=== PATIENT | male | born 1955 | race Caucasian/White ===

== ENCOUNTER → 2016-07-13 | Outpatient (CLI) | payer BC ==
[~2016-07-13] MED LIST: AMLODIPINE BESYL5 MG PO; ASPIR-LOW81 MG PO; CARDIZEM CD240 MG PO; Cardizem CD,LA,Cartia,Tiazac,Dilacor,Taztia PO; ELIQUIS5 MG PO; FUROSEMIDE20 MG PO; HYDROCHLOROTHIA25 MG PO; LEVOTHYROXINE100 MCG PO; MELOXICAM7.5 MG PO; MOTRIN IB200 MG PO; NORVASC10 MG PO; PERCOCET 5/31 TABLET PO; PRINIVIL20 MG PO; SOTALOL80 MG PO; SYNTHROID175 MCG PO; TRAMADOL HCL50 MG PO
== END | disposition home or self-care (01) ==
LOC: NUC 08:19
DX: Z01.810 Encounter for preprocedural cardiovascular examination (principal)
CPT/HCPCS: 78452; 78999; 93017; A9500; J2785

== ENCOUNTER 2016-09-14 10:44 | Inpatient (IN) | payer BC ==
[~2016-09-14] VITALS: Ht 185.4 cm; Wt 159.0 kg
[2016-09-14 12:56] VITALS: BP 142/82
[2016-09-14 13:08] LABS: POINT-OF-CARE METER ID UU14174212
[2016-09-14 18:45] VITALS: BP 149/77
[2016-09-15 00:14] VITALS: BP 163/82
[2016-09-15 00:28] LABS: POINT-OF-CARE METER ID UU14162508
[2016-09-15 03:14] VITALS: BP 178/76
[2016-09-15 04:24] VITALS: BP 178/79
[2016-09-15 06:01] LABS: POINT-OF-CARE METER ID UU14162508
[2016-09-15 07:13] LABS: HEMATOCRIT 41.4 % (38.0-50.0); MCH 30.7 PG (29.0-34.0); MCHC 34.1 G/DL (30.0-36.0); MCV 90.2 FL (86-99); MEAN PLAT.VOLUME 10.9 uM^3 (9.0-12.4); PLATELET COUNT 237 K/uL (156-360); RBC DIS.WIDTH-CV 11.9 % (11.8-14.6); RBC DIS.WIDTH-SD 39.3 % (39-53); RED BLOOD COUNT 4.59 M/uL (4.00-5.50)
[2016-09-15 07:17] LABS: WHITE BLOOD COUNT 9.3 K/uL (4.1-10.2)
[2016-09-15 07:23] LABS: ANION GAP 12 MEQ/L (2-14); CHLORIDE 103 MEQ/L (99-109); GFR ESTIMATE (CALCULATED) > 59 mL/min/; GLUCOSE 122 mg/dL (70-99); MAGNESIUM 1.7 mg/dl (1.3-2.7); POTASSIUM 4.4 MEQ/L (3.7-5.4); SAMPLE HEMOLYSIS CHECK 0; SAMPLE ICTERIC CHECK 0; SAMPLE LIPEMIA CHECK 0; SODIUM 140 MEQ/L (136-147); UREA NITROGEN (BUN) 16 mg/dL (9-23)
[2016-09-15 08:00] VITALS: BP 175/76
[2016-09-15] MEDS ORDERED: ELIQUIS5 MG PO (08:19)
[2016-09-15] MEDS ORDERED: HYDROCODON-ACE1 EAC7 PO (08:20)
[2016-09-15] MEDS ORDERED: ASPIR-LOW81 MG PO (08:20)
[2016-09-15 12:00] VITALS: BP 179/77
[2016-09-15 12:30] LABS: POINT-OF-CARE METER ID UU14162508
[2016-09-15 14:30] VITALS: BP 162/68
== END 2016-09-15 13:54 | disposition home or self-care (01) | DRG 621 ==
LOC: 2SOUTH 10:44 → 2EASTP 18:42
PROVIDERS: Surgery
PROC: 0DB64Z3 Excision of Stomach, Percutaneous Endoscopic Approach, Vertical (ICD-10-PCS; principal; 2016-09-14)
DX: E66.01 Morbid (severe) obesity due to excess calories (principal); Z68.42 Body mass index [BMI] 45.0-49.9, adult; I27.2 Other secondary pulmonary hypertension; G47.30 Sleep apnea, unspecified; I48.2 Chronic atrial fibrillation; I48.0 Paroxysmal atrial fibrillation; E03.9 Hypothyroidism, unspecified; M12.9 Arthropathy, unspecified; I10 Essential (primary) hypertension; E78.5 Hyperlipidemia, unspecified; Z79.82 Long term (current) use of aspirin; Z99.89 Dependence on other enabling machines and devices; Z87.891 Personal history of nicotine dependence
CPT/HCPCS: 80048; 82948; 83735; 84100; 85027; C9113; J0330; J0461; J0690; J1100; J1170; J1644; J1650; J1815; J1885; J2250; J2270; J2405; J2550; J3010; J3480; J7120; S0020

== ENCOUNTER 2017-12-11 19:04 | Inpatient (IN) | payer OTHER ==
[~2017-12-11] VITALS: Ht 185.4 cm; Wt 117.8 kg
[~2017-12-11 19:04] MED LIST changes: +HYDROCODON-ACE1 EAC7 PO
[2017-12-11 19:36] LABS: HEMATOCRIT 44.8 % (38.0-50.0); HEMOGLOBIN 15.3 G/DL (12.5-16.6); MCH 31.4 PG (29.0-34.0); MCHC 34.2 G/DL (30.0-36.0); MCV 91.8 FL (86-99); PLATELET COUNT 181 K/uL (156-360); RBC DIS.WIDTH-CV 13.8 % (11.8-14.6); RBC DIS.WIDTH-SD 46.7 % (39-53); RED BLOOD COUNT 4.88 M/uL (4.00-5.50); WHITE BLOOD COUNT 5.4 K/uL (4.1-10.2)
[2017-12-11 19:52] LABS: CHLORIDE 108 mEq/L (99-109); POTASSIUM 3.9 mEq/L (3.7-5.4); SODIUM 140 mEq/L (136-147)
[2017-12-11 19:53] LABS: GLUCOSE 98 mg/dL (70-99)
[2017-12-11 19:57] LABS: CREATININE 0.9 mg/dL (0.6-1.3); GFR ESTIMATE (CALCULATED) > 59 mL/min/ (58.99-99999)
[2017-12-11 20:03] LABS: TROP-I INTERPRETATION INDETERMINATE; TROPONIN-I 0.45 ng/mL (0.0-0.30)
[2017-12-11 20:13] LABS: ALBUMIN 3.4 g/dL (3.2-4.8); UREA NITROGEN (BUN) 17 mg/dL (9-23)
[2017-12-11 20:16] LABS: TOTAL PROTEIN 5.5 g/dL (6.4-8.3)
[2017-12-11 20:18] LABS: TOTAL BILIRUBIN 1.5 mg/dL (0.0-1.0)
[2017-12-11 20:19] LABS: ALKALINE PHOSPHATASE 76 IU/L (3-129)
[2017-12-11 20:22] LABS: ALT (GPT) 60 IU/L (3-49); AST (GOT) 40 IU/L (2-34); DIRECT BILIRUBIN 0.6 mg/dL (0.0-0.3)
[2017-12-11] MEDS ORDERED: LO-DOSE ASPIRIN81 M2 PO (23:02)
[2017-12-11] MEDS ORDERED: LEVOTHYROXINE175 MCG PO (23:03)
[2017-12-11] MEDS ORDERED: OMEPRAZOLE40 M1 PO (23:03)
[2017-12-11] MEDS ORDERED: FUROSEMIDE20 MG PO (23:03)
[2017-12-11] MEDS ORDERED: PRAVASTATIN SOD40 MG PO (23:03)
[2017-12-12] VITALS (8 sets, daily range): BP systolic 95–139; BP diastolic 50–109
[2017-12-12 00:11] LABS: MAGNESIUM 1.9 mg/dL (1.3-2.7)
[2017-12-12 02:18] LABS: TROP-I INTERPRETATION INDETERMINATE; TROPONIN-I 0.33 ng/mL (0.0-0.30)
[2017-12-12 05:23] LABS: HEMATOCRIT 42.5 % (38.0-50.0); HEMOGLOBIN 14.3 G/DL (12.5-16.6); MCH 30.9 PG (29.0-34.0); MCHC 33.6 G/DL (30.0-36.0); MCV 91.8 FL (86-99); PLATELET COUNT 163 K/uL (156-360); RBC DIS.WIDTH-SD 47.2 % (39-53); RED BLOOD COUNT 4.63 M/uL (4.00-5.50); WHITE BLOOD COUNT 5.3 K/uL (4.1-10.2)
[2017-12-12 05:46] LABS: ALBUMIN 3.1 G/DL (3.2-4.8); ALKALINE PHOSPHATASE 55 IU/L (3-129); ALT (GPT) 43 IU/L (3-49); AST (GOT) 28 IU/L (2-34); CHLORIDE 106 MEQ/L (99-109); CREATININE 0.8 MG/DL (0.6-1.3); GFR ESTIMATE (CALCULATED) > 59 mL/min/ (58.99-99999); GLUCOSE 88 mg/dL (70-99); POTASSIUM 3.4 MEQ/L (3.7-5.4); SODIUM 141 MEQ/L (136-147); TOTAL BILIRUBIN 1.3 MG/DL (0.0-1.0); TOTAL PROTEIN 5.1 G/DL (6.4-8.3); UREA NITROGEN (BUN) 14 mg/dL (9-23)
[2017-12-12 07:52] LABS: THYROTROPIN (TSH) 2.9 MIU/L (0.4-5.5)
[2017-12-12 08:22] LABS: TROP-I INTERPRETATION NEGATIVE; TROPONIN-I 0.24 ng/mL (0.0-0.30)
[2017-12-13] VITALS (7 sets, daily range): BP systolic 100–123; BP diastolic 76–97
[2017-12-13 13:45] LABS: CHLORIDE 102 MEQ/L (99-109); CREATININE 0.8 MG/DL (0.6-1.3); GFR ESTIMATE (CALCULATED) > 59 mL/min/ (58.99-99999); GLUCOSE 124 mg/dL (70-99); MAGNESIUM 1.8 mg/dl (1.3-2.7); SODIUM 140 MEQ/L (136-147); UREA NITROGEN (BUN) 11 mg/dL (9-23)
[2017-12-13 13:46] LABS: POTASSIUM 4.7 MEQ/L (3.7-5.4)
[2017-12-14 03:07] VITALS: BP 98/80
[2017-12-14 05:19] LABS: BASOPHIL (%) 0.6 % (0-1); EOSINOPHIL (%) 2.3 % (0-5); EOSINOPHIL COUNT 0.2 K/uL (0-0.3); HEMATOCRIT 42.1 % (38.0-50.0); HEMOGLOBIN 14.1 G/DL (12.5-16.6); IMMATURE GRANULOCYTE (%) 0.1 % (0.0-0.7); LYMPHOCYTE (%) 23.9 % (15-42); LYMPHOCYTE COUNT 1.7 K/uL (1.0-2.8); MCH 31.2 PG (29.0-34.0); MCHC 33.5 G/DL (30.0-36.0); MCV 93.1 FL (86-99); MONOCYTE (%) 8.3 % (3-12); MONOCYTE COUNT 0.6 K/uL (0-0.8); NEUTROPHIL (%) 64.8 % (45-76); NEUTROPHIL COUNT 4.6 K/uL (1.8-6.4); PLATELET COUNT 176 K/uL (156-360); RBC DIS.WIDTH-SD 47.4 % (39-53); RED BLOOD COUNT 4.52 M/uL (4.00-5.50); WHITE BLOOD COUNT 7.1 K/uL (4.1-10.2)
[2017-12-14 05:37] VITALS: BP 106/73
[2017-12-14 06:10] LABS: ALBUMIN 3.1 G/DL (3.2-4.8); ALKALINE PHOSPHATASE 58 IU/L (3-129); ALT (GPT) 29 IU/L (3-49); AST (GOT) 17 IU/L (2-34); CHLORIDE 104 MEQ/L (99-109); CREATININE 0.6 MG/DL (0.6-1.3); GFR ESTIMATE (CALCULATED) > 59 mL/min/ (58.99-99999); POTASSIUM 4.2 MEQ/L (3.7-5.4); SODIUM 139 MEQ/L (136-147); TOTAL PROTEIN 4.9 G/DL (6.4-8.3); UREA NITROGEN (BUN) 12 mg/dL (9-23)
[2017-12-14 06:17] LABS: GLUCOSE 85 mg/dL (70-99); TOTAL BILIRUBIN 0.8 MG/DL (0.0-1.0)
[2017-12-14 07:44] VITALS: BP 123/88
[2017-12-14 12:18] VITALS: BP 122/81
[2017-12-14 15:45] VITALS: BP 97/83
[2017-12-14 20:39] VITALS: BP 129/76
[2017-12-15] VITALS (8 sets, daily range): BP systolic 102–130; BP diastolic 68–82
[2017-12-15 05:58] LABS: BASOPHIL (%) 0.4 % (0-1); EOSINOPHIL (%) 2.5 % (0-5); EOSINOPHIL COUNT 0.2 K/uL (0-0.3); HEMATOCRIT 44.9 % (38.0-50.0); HEMOGLOBIN 14.7 G/DL (12.5-16.6); IMMATURE GRANULOCYTE (%) 0.3 % (0.0-0.7); LYMPHOCYTE (%) 20.7 % (15-42); LYMPHOCYTE COUNT 1.4 K/uL (1.0-2.8); MCH 30.4 PG (29.0-34.0); MCHC 32.7 G/DL (30.0-36.0); MONOCYTE (%) 8.4 % (3-12); MONOCYTE COUNT 0.6 K/uL (0-0.8); NEUTROPHIL (%) 67.7 % (45-76); NEUTROPHIL COUNT 4.7 K/uL (1.8-6.4); PLATELET COUNT 183 K/uL (156-360); RBC DIS.WIDTH-CV 13.9 % (11.8-14.6); RBC DIS.WIDTH-SD 47.2 % (39-53); RED BLOOD COUNT 4.83 M/uL (4.00-5.50); WHITE BLOOD COUNT 6.9 K/uL (4.1-10.2)
[2017-12-15 06:24] LABS: ALBUMIN 3.3 G/DL (3.2-4.8); ALKALINE PHOSPHATASE 64 IU/L (3-129); ALT (GPT) 25 IU/L (3-49); AST (GOT) 16 IU/L (2-34); CHLORIDE 101 MEQ/L (99-109); CREATININE 0.9 MG/DL (0.6-1.3); GFR ESTIMATE (CALCULATED) > 59 mL/min/ (58.99-99999); GLUCOSE 83 mg/dL (70-99); POTASSIUM 4.8 MEQ/L (3.7-5.4); SODIUM 141 MEQ/L (136-147); TOTAL PROTEIN 5.3 G/DL (6.4-8.3); UREA NITROGEN (BUN) 11 mg/dL (9-23)
[2017-12-15 06:34] LABS: TOTAL BILIRUBIN 1.3 MG/DL (0.0-1.0)
[2017-12-16 04:52] VITALS: BP 111/71
[2017-12-16 08:45] VITALS: BP 111/62
[2017-12-16] MEDS ORDERED: CORDARONE200 MG PO (09:01)
[2017-12-16] MEDS ORDERED: K-DUR20 MEQ PO (09:01)
[2017-12-16] MEDS ORDERED: LASIX40 MG PO (09:01)
[2017-12-16] MEDS ORDERED: LISINOPRIL5 MG PO (09:01)
[2017-12-16 12:23] VITALS: BP 118/70
[2017-12-16 16:10] VITALS: BP 115/77
== END 2017-12-16 16:47 | disposition home or self-care (01) | DRG 309 ==
LOC: EME 19:04 → EDOF 23:23 → 4EAST 23:23 → ENRESERV 23:26 → 4EAST 12-12 02:19
PROVIDERS: Hospitalist
DX: I48.2 Chronic atrial fibrillation (principal); J90 Pleural effusion, not elsewhere classified; I50.813 Acute on chronic right heart failure; I42.0 Dilated cardiomyopathy; I27.29 Other secondary pulmonary hypertension; I95.9 Hypotension, unspecified; E87.6 Hypokalemia; E66.01 Morbid (severe) obesity due to excess calories; E03.9 Hypothyroidism, unspecified; I27.81 Cor pulmonale (chronic); E78.5 Hyperlipidemia, unspecified; G47.33 Obstructive sleep apnea (adult) (pediatric); I25.10 Atherosclerotic heart disease of native coronary artery without angina pectoris; I89.0 Lymphedema, not elsewhere classified; M19.90 Unspecified osteoarthritis, unspecified site; R74.8 Abnormal levels of other serum enzymes; Z68.37 Body mass index [BMI] 37.0-37.9, adult; Z98.84 Bariatric surgery status; I25.2 Old myocardial infarction; Z79.01 Long term (current) use of anticoagulants; Z79.82 Long term (current) use of aspirin; Z82.49 Family history of ischemic heart disease and other diseases of the circulatory system
CPT/HCPCS: 71045; 80048; 80053; 80076; 83735; 83880; 84443; 84484; 85025; 85027; 93005; 93306; 93312; 93970; 99281; 99285; J1160; J1940; J7050